=== PATIENT | female | born 1970 | race Caucasian/White ===

== ENCOUNTER 2016-06-30 16:27 | Emergency (ER) | payer BC ==
[2016-06-30] MEDS ORDERED: Famotidine 20 MG/2 ML SDV IVPUSH ONE (16:42)
[2016-06-30] MEDS ORDERED: Aspirin 81 MG Tab.Chew PO ONE (16:42)
[2016-06-30] MEDS ORDERED: Sodium Chloride 0.9% 1,000 ML IV ONE (16:42)
--- NOTE | 2016-06-30 16:45 | EDM.PDOC ---
ED HISTORY OF PRESENT ILLNESS - General Chief Complaint: Chest Pain Stated Complaint: CHEST PAIN Time Seen by Provider: 06/30/16 16:40 Source of Information: Reports: Patient History Limitations: Reports: No limitations - History of Present Illness INITIAL COMMENTS - FREE TEXT/NARRATIVE: History of present illness: [46 her old Female comes in complaining of significant amounts of chest pain and to left chest wall radiating down her left arm and up into her neck patient indicates that she gets tired significantly easy, bilateral ankle swelling, as well as feeling like her heart is in a bag it locks. It feels "boggy" and she feels like she has overwhelming amounts of fatigue] Review of systems: As per history of present illness and below otherwise all systems reviewed and negative. Past medical history: As per history of present illness and as reviewed below otherwise noncontributory. Surgical history: As per history of present illness and as reviewed below otherwise noncontributory. Social history: No reported history of drug or alcohol abuse. Family history: As per history of present illness and as reviewed below otherwise noncontributory. Physical exam: HEENT: Atraumatic, normocephalic, pupils reactive, negative for conjunctival pallor or scleral icterus, mucous membranes moist, throat clear, neck supple, nontender, trachea midline. Lungs: Clear to auscultation, breath sounds equal bilaterally, chest nontender. Heart: S1S2, regular, negative for clicks, rubs, or JVD. Abdomen: Soft, nondistended, nontender. Negative for masses or hepatosplenomegaly. Negative for costovertebral tenderness. Pelvis: Stable nontender. Genitourinary: Deferred. Rectal: Deferred. Extremities: Atraumatic, negative for cords or calf pain. Neurovascular unremarkable. Neuro: Awake, alert, oriented. Cranial nerves II through XII unremarkable. Cerebellum unremarkable. Motor and sensory unremarkable throughout. Exam nonfocal. Diagnostics: [CBC, CMP, troponin, INR, EKG, chest x-ray only UA, urine hCG] Therapeutics: [IV] Impression: [Atypical chest pain] Plan: [[id number] pain medication, may alternate ice and heat as well as followup PCP] Definitive disposition and diagnosis as appropriate pending reevaluation and review of above. - Related Data Allergies/ADRs: Allergies Allergy/AdvReac Type Severity Reaction Status Date / Time meperidine [From Demerol] Allergy Drowsiness Verified 06/30/16 16:56 CT contrast Allergy Hyperactivi Uncoded 06/30/16 16:56 ty ED ROS GENERAL - Review of Systems Review Of Systems: See Below (History of present illness) ED EXAM, GENERAL - Physical Exam Exam: See Below (See history of present illness) Course - Vital Signs Last Recorded V/S: Last Vital Signs Temp 36.9 C 06/30/16 17:00 Pulse 87 06/30/16 17:00 Resp 18 06/30/16 17:00 BP 143/86 H 06/30/16 17:00 Pulse Ox 97 06/30/16 17:00 - Orders/Labs/Meds Orders: Active Orders 24 hr Category Date Time Status Cardiac Monitoring [RC] . DIRECTED Care 06/30/16 16:42 Active EKG Documentation Completion [RC] STAT Care 06/30/16 16:42 Active Pulse Oximetry [RC] ASDIRECTED Care 06/30/16 16:42 Active Chest 1V Frontal [CR] Stat Exams 06/30/16 16:42 Taken HCG QUALITATIVE,URINE [URCHEM] Stat Lab 06/30/16 18:41 Ordered UA W/MICROSCOPIC [URIN] Stat Lab 06/30/16 18:41 Ordered Labs: Laboratory Tests 06/30/16 06/30/16 06/30/16 Range/Units 16:52 16:52 16:52 WBC 7.60 (4.0-11.0) K/uL RBC 4.83 (4.30-5.90) M/uL Hgb 14.6 (12.0-16.0) g/dL Hct 42.2 (36.0-46.0) % MCV 87.4 (80.0-98.0) fL MCH 30.2 (27.0-32.0) pg MCHC 34.6 (31.0-37.0) g/dL RDW Std Deviation 42.3 (28.0-62.0) fl RDW Coeff of Annie 13 (11.0-15.0) % Plt Count 209 (150-400) K/uL MPV 11.50 (7.40-12.00) fL Neut % (Auto) 53.4 (48.0-80.0) % Lymph % (Auto) 39.1 (16.0-40.0) % Deuel % (Auto) 6.3 (0.0-15.0) % Eos % (Auto) 0.8 (0.0-7.0) % Baso % (Auto) 0.4 (0.0-1.5) % Neut # (Auto) 4.1 (1.4-5.7) K/uL Lymph # (Auto) 3.0 H (0.6-2.4) K/uL Deuel # (Auto) 0.5 (0.0-0.8) K/uL Eos # (Auto) 0.1 (0.0-0.7) K/uL Baso # (Auto) 0.0 (0.0-0.1) K/uL Nucleated RBC % 0.0 /100WBC Nucleated RBCs # 0 K/uL INR 0.99 (0.86-1.11) Sodium 139 (136-146) mmol/L Potassium 3.7 (3.5-5.1) mmol/L Chloride 105 (98-110) mmol/L Carbon Dioxide 22 (21-31) mmol/L BUN 9 (6.0-23.0) mg/dL Creatinine 0.8 (0.6-1.5) mg/dL Est Cr Clr Drug Dosing 80.51 mL/min Estimated GFR (MDRD) > 60.0 ml/min Glucose 100 (60-110) mg/dL Calcium 9.5 (8.8-10.8) mg/dL Total Bilirubin 0.6 (0.1-1.5) mg/dL AST 31 (5-40) IU/L ALT 46 (8-54) IU/L Alkaline Phosphatase 54 (40-150) Troponin I (0.0-0.29) NG/ML B-Natriuretic Peptide (<100) PG/ML Total Protein 7.7 (6.0-8.0) g/dL Albumin 4.3 (3.5-5.0) g/dL Globulin 3.4 (2.0-3.5) g/dL Albumin/Globulin Ratio 1.3 (1.3-2.8) Amylase 48 (10-90) U/L Lipase 25 (7-80) U/L 06/30/16 06/30/16 Range/Units 16:52 16:52 WBC (4.0-11.0) K/uL RBC (4.30-5.90) M/uL Hgb (12.0-16.0) g/dL Hct (36.0-46.0) % MCV (80.0-98.0) fL MCH (27.0-32.0) pg MCHC (31.0-37.0) g/dL RDW Std Deviation (28.0-62.0) fl RDW Coeff of Annie (11.0-15.0) % Plt Count (150-400) K/uL MPV (7.40-12.00) fL Neut % (Auto) (48.0-80.0) % Lymph % (Auto) (16.0-40.0) % Deuel % (Auto) (0.0-15.0) % Eos % (Auto) (0.0-7.0) % Baso % (Auto) (0.0-1.5) % Neut # (Auto) (1.4-5.7) K/uL Lymph # (Auto) (0.6-2.4) K/uL Deuel # (Auto) (0.0-0.8) K/uL Eos # (Auto) (0.0-0.7) K/uL Baso # (Auto) (0.0-0.1) K/uL Nucleated RBC % /100WBC Nucleated RBCs # K/uL INR (0.86-1.11) Sodium (136-146) mmol/L Potassium (3.5-5.1) mmol/L Chloride (98-110) mmol/L Carbon Dioxide (21-31) mmol/L BUN (6.0-23.0) mg/dL Creatinine (0.6-1.5) mg/dL Est Cr Clr Drug Dosing mL/min Estimated GFR (MDRD) ml/min Glucose (60-110) mg/dL Calcium (8.8-10.8) mg/dL Total Bilirubin (0.1-1.5) mg/dL AST (5-40) IU/L ALT (8-54) IU/L Alkaline Phosphatase (40-150) Troponin I < 0.10 (0.0-0.29) NG/ML B-Natriuretic Peptide < 15 (<100) PG/ML Total Protein (6.0-8.0) g/dL Albumin (3.5-5.0) g/dL Globulin (2.0-3.5) g/dL Albumin/Globulin Ratio (1.3-2.8) Amylase (10-90) U/L Lipase (7-80) U/L Meds: Medications Discontinued Medications Generic Name Dose Route Start Last Admin Trade Name Estefania PRN Reason Stop Dose Admin Aspirin 324 mg 06/30/16 16:42 06/30/16 17:25 Aspirin PO 06/30/16 16:43 324 mg ONETIME ONE Administration Famotidine 20 mg 06/30/16 16:42 06/30/16 17:27 Pepcid IVPUSH 06/30/16 16:43 20 mg ONETIME ONE Administration Sodium Chloride 1,000 mls @ 999 mls/hr 06/30/16 16:42 06/30/16 17:26 Normal Saline IV 06/30/16 17:42 999 mls/hr .Bolus ONE Administration Departure - Departure Time of Disposition: 19:19 Disposition: Home, Self-Care 01 Condition: good Clinical Impression: Atypical chest pain Instructions: Nonspecific Chest Pain, [id number] Forms: ED Department Discharge Additional Instructions: The following information is given to patients seen in the emergency department who are being discharged to home. This information is to outline your options for follow-up care. We provide all patients seen in our emergency department with a follow-up referral. The need for follow-up, as well as the timing and circumstances, are variable depending upon the specifics of your emergency department visit. If you don't have a primary care physician on staff, we will provide you with a referral. We always advise you to contact your personal physician following an emergency department visit to inform them of the circumstance of the visit and for follow-up with them and/or the need for any referrals to a consulting specialist. The emergency department will also refer you to a specialist when appropriate. This referral assures that you have the opportunity for follow-up care with a specialist. All of these measure are taken in an effort to provide you with optimal care, which includes your follow-up. Under all circumstances we always encourage you to contact your private physician who remains a resource for coordinating your care. When calling for follow-up care, please make the office aware that this follow-up is from your recent emergency room visit. If for any reason you are refused follow-up, please contact the [facility] Emergency Department at and asked to speak to the emergency department charge nurse. May take ibuprofen 800 mg every 8 hours as needed for pain May alternate ice or heat to shoulder area as needed no longer than 20 minutes at a time Followup with primary care provider in one to 2 days return to ED as needed as discussed - My Orders Last 24 Hours: My Active Orders 06/30/16 16:42 Cardiac Monitoring [RC] . DIRECTED EKG Documentation Completion [RC] STAT Pulse Oximetry [RC] ASDIRECTED Chest 1V Frontal [CR] Stat 06/30/16 18:41 HCG QUALITATIVE,URINE [URCHEM] Stat UA W/MICROSCOPIC [URIN] Stat - Assessment/Plan Last 24 Hours: My Active Orders 06/30/16 16:42 Cardiac Monitoring [RC] . DIRECTED EKG Documentation Completion [RC] STAT Pulse Oximetry [RC] ASDIRECTED Chest 1V Frontal [CR] Stat 06/30/16 18:41 HCG QUALITATIVE,URINE [URCHEM] Stat UA W/MICROSCOPIC [URIN] Stat
[2016-06-30 17:44] LABS: CHLORIDE,CL 105 mmol/L (98-110); SODIUM,NA 139 mmol/L (136-146)
[2016-07-01 03:08] VITALS: BP 129/86
--- NOTE | 2016-07-01 15:38 | CR ---
EXAM DATE: 06/30/16 PATIENT'S AGE: 46 Patient: GALLO MORGAN Facility: [place], [place] Site . Site : [id number] Study: XRay Chest [id number]/30/2017 6:37:32 PM Ordering Physician: Doctor Cody Final Report: Indication: Chest pain Technique: Chest 1 view. Comparison: None Findings: Cardiovascular and mediastinum: Heart size and vasculature are normal in caliber and appearance. Mediastinum is within normal limits. Lungs and pleural space: Lungs are clear. No sign of infiltrate or mass. No sign of pleural effusion. No pneumothorax. Bones and soft tissues: No significant findings. Impression: No sign of acute disease. Dictated by Natasha Rod MD @ Jun 30 2016 7:04PM (Electronic Signature) Report Signed by Proxy and Original Signed Document filed in the Medical Record. JESSICA
== END 2016-06-30 19:36 | disposition home or self-care (01) ==
LOC: MW.ED 16:27
DX: R07.89 Other chest pain (principal); Z88.8 Allergy status to other drugs, medicaments and biological substances; Z91.041 Radiographic dye allergy status
CPT/HCPCS: 36415; 71010; 80053; 82150; 83690; 83880; 84484; 85025; 85610; 93005; 96361; 96374; 99285; A9270; J7040; 99284

== ENCOUNTER → 2016-07-20 | Outpatient (CLI) | payer BC ==
--- NOTE | 2016-07-20 14:13 | NM ---
EXAMINATION: Nuclear medicine myocardial perfusion study with exercise stress test. HISTORY: Chest pain. PROCEDURE: Patient exercised according to Ever protocol for 4 minutes and 26 seconds and achieved maximal hear t rate of 152 beats per minute. Adequate exercise. Following intravenous administration of 9.6 and 29.9 mCi of technetium 99m sestamibi, stress and r est SPECT images including gating imaging was performed. FINDINGS: Stress and rest myocardial SPECT images demonstrates uniform tracer uptake throughout the left ventr icular myocardium. Review of gated images demonstrates normal wall motion, contractility and wall thickening. The left ventricular ejection fraction is 70 %. The left ventricular chamber size is normal. IMPRESSION: 1. No evidence of myocardial ischemia. 2. Normal ventricular chamber size and function with ejection fraction of 70 %.
--- NOTE | 2016-07-21 13:17 | PCM.PRNOTE ---
- Free Text/Narrative Note: Procedure: Cardiolite exercise stress test Resting blood pressure 120/88, pulse 86 Patient exercised per Ever protocol 4 minutes and 26 seconds and achieved a maximum heart rate of 152 beats per minute which was 88% of age-predicted maximum heart rate. Mets: 7.0. Double product [id number]. Resting EKG revealed normal sinus rhythm. With exertion no acute ST-T changes were noted. Test stopped at target heart rate. Patient complained of shortness of breath and anterior chest discomfort latter part of exercise stress testing with resolution during recovery phase Impression. #1. Negative stress test for ischemic ST-T changes #2. Poor exercise tolerance #3. Cardiolite portion of test pending
--- NOTE | 2016-07-21 13:29 | PCM.PRNOTE ---
- Free Text/Narrative Note: Cardiolite exercise stress test Resting blood pressure 120/88, pulse 86 Patient exercised per Ever protocol 4 minutes and 26 seconds and achieved a maximum heart rate of 152 beats per minute which was 88% of age-predicted maximum heart rate. Mets: 7.0. Double product 30499 Resting EKG revealed normal sinus rhythm. With exertion, no significant ST-T changes were noted. Test stopped at target heart rate. Patient complained of shortness of breath and anterior chest discomfort during the latter part of stress testing with resolution during recovery phase Impression: #1. Negative stress test for ischemic ST-T changes #2. Poor exercise tolerance #3. Cardiolite portion of test pending
== END | disposition home or self-care (01) ==
LOC: MW.NM 06:29
PROVIDERS: ATTEND Family Medicine
DX: R07.89 Other chest pain (principal)
CPT/HCPCS: 78454; 93017; A9500

== ENCOUNTER 2021-08-20 17:17 | Emergency (ER) | payer BC ==
[2021-08-20] MEDS ORDERED: Sodium Chloride 0.9% 2.5 ML Syringe FLUSH PRN (18:32)
[2021-08-20] MEDS ORDERED: Sodium Chloride 0.9% 1,000 ML IV ONE (18:32)
[2021-08-20] MEDS ORDERED: Sodium Chloride 0.9% 10 ML Syringe FLUSH PRN (18:32)
[2021-08-20] MEDS ORDERED: Ondansetron 4 MG/2 ML SDV IVPUSH ONE (18:32)
[2021-08-20] MEDS ORDERED: Alum Hydro/Mag Hydro/Simeth XS 15 ML, Metoclopramide 5 MG, Lidocaine 2% 5 ML PO ONE ×3 (18:33)
[2021-08-20] MEDS ORDERED: Pantoprazole 80 MG in Sodium Chloride 0.9% 10 ML IVPUSH ONE (18:33)
[2021-08-20 19:04] LABS: BLOOD UREA NITROGEN,BUN 10 mg/dL (7.0-18.0); CARBON DIOXIDE,CO2 28.8 mmol/L (21.0-32.0); CHLORIDE,CL 105 mmol/L (98-107); GLUCOSE RANDOM 89 mg/dL (74-106); LIPASE 129 U/L (73-393); POTASSIUM,K 3.4 mmol/L (3.5-5.1); SODIUM,NA 141 mmol/L (136-145)
[2021-08-20] MEDS ORDERED: Iopamidol 755 MG/ML 500 ML Multipack Bottle IVPUSH ONE (19:49)
[2021-08-20 21:05] VITALS: BP 142/93; PULSE 60
== END 2021-08-20 21:11 | disposition home or self-care (01) ==
LOC: MW.ED 17:17
DX: R12 Heartburn (principal); R10.12 Left upper quadrant pain; I25.2 Old myocardial infarction; Z90.49 Acquired absence of other specified parts of digestive tract; Z79.899 Other long term (current) drug therapy; Z91.041 Radiographic dye allergy status; Z88.6 Allergy status to analgesic agent
CPT/HCPCS: 36415; 74177; 80053; 81003; 83690; 84703; 85025; 96374; 96375; 99284; A9270; C9113; J2405; J3490; J7030; Q9967

== ENCOUNTER 2021-09-20 09:46 | Day surgery (SDC) | payer BC ==
[~2021-09-20 09:46] MED LIST: Lactated Ringers 1,000 ML IV SCH; Lidocaine 2% 5 ML SDV ONE; Propofol 200 MG/20 ML SDV ONE; fentaNYL 100 MCG/2 ML SDV ONE
[2021-09-20] MEDS ORDERED: Propofol 200 MG/20 ML SDV ONE (12:10)
[2021-09-20] MEDS ORDERED: Lactated Ringers 1,000 ML IV SCH (12:30)
[2021-09-20 13:08] VITALS: BP 132/59; PULSE 65
== END 2021-09-20 13:10 | disposition home or self-care (01) ==
LOC: MW.SDS 09:46
PROVIDERS: ATTEND Surgery
DX: R15.9 Full incontinence of feces (principal); K31.89 Other diseases of stomach and duodenum; E66.9 Obesity, unspecified; F43.10 Post-traumatic stress disorder, unspecified; J44.9 Chronic obstructive pulmonary disease, unspecified; F41.9 Anxiety disorder, unspecified; F32.A Depression, unspecified; K29.70 Gastritis, unspecified, without bleeding; Z88.5 Allergy status to narcotic agent; Z91.041 Radiographic dye allergy status; Z90.49 Acquired absence of other specified parts of digestive tract; Z79.52 Long term (current) use of systemic steroids; Z79.51 Long term (current) use of inhaled steroids; Z79.899 Other long term (current) drug therapy; Z80.0 Family history of malignant neoplasm of digestive organs; Z68.36 Body mass index [BMI] 36.0-36.9, adult
CPT/HCPCS: J2704; J3010; J7120

== ENCOUNTER 2021-09-29 16:20 | Emergency (ER) | payer BC ==
[2021-09-29] MEDS ORDERED: Sodium Chloride 0.9% 1,000 ML IV ONE (16:28)
[2021-09-29] MEDS ORDERED: LORazepam 2 MG/ML SDV IVPUSH ONE (16:28)
[2021-09-29] MEDS ORDERED: Ondansetron 4 MG/2 ML SDV IVPUSH ONE (16:28)
[2021-09-29] MEDS ORDERED: Ketorolac 30 MG/ML SDV IVPUSH ONE (16:28)
[2021-09-29 17:47] LABS: CARBON DIOXIDE,CO2 24.6 mmol/L (21.0-32.0); POTASSIUM,K 3.2 mmol/L (3.5-5.1)
[2021-09-29 19:32] VITALS: BP 121/68; PULSE 72
== END 2021-09-29 18:13 | disposition home or self-care (01) ==
LOC: MW.ED 16:20
DX: G43.909 Migraine, unspecified, not intractable, without status migrainosus (principal); K21.9 Gastro-esophageal reflux disease without esophagitis; E66.9 Obesity, unspecified; Z91.041 Radiographic dye allergy status; Z88.8 Allergy status to other drugs, medicaments and biological substances; Z79.899 Other long term (current) drug therapy; Z68.36 Body mass index [BMI] 36.0-36.9, adult
CPT/HCPCS: 36415; 70450; 80053; 85025; 96361; 96374; 96375; 99284; J1885; J2060; J2405; J7030

== ENCOUNTER 2023-01-05 17:08 | Emergency (ER) | payer BC ==
[2023-01-05] MEDS ORDERED: Acetaminophen 325 MG Tab PO ONE (19:16)
[2023-01-05] MEDS ORDERED: Ibuprofen 400 MG Tab PO ONE (19:16)
[2023-01-05] MEDS ORDERED: Lidocaine 4% 1 each Patch TOP PRN (19:16)
[2023-01-05] MEDS ORDERED: oxyCODONE 5 MG Tab PO ONE (19:24)
[2023-01-05 20:37] VITALS: BP 116/84; PULSE 84
== END 2023-01-05 20:36 | disposition home or self-care (01) ==
LOC: MW.ED 17:08
DX: R07.89 Other chest pain (principal); J44.9 Chronic obstructive pulmonary disease, unspecified; K21.9 Gastro-esophageal reflux disease without esophagitis; E66.9 Obesity, unspecified; Z68.41 Body mass index [BMI] 40.0-44.9, adult; Z88.8 Allergy status to other drugs, medicaments and biological substances; Z91.041 Radiographic dye allergy status; Z88.5 Allergy status to narcotic agent; Z79.899 Other long term (current) drug therapy
CPT/HCPCS: 71101; 73030; 99283; A9270

== ENCOUNTER 2023-03-14 17:03 | Emergency (ER) | payer OTHER, BC ==
[2023-03-14 19:53] VITALS: BP 129/77; PULSE 58
== END 2023-03-14 19:24 | disposition home or self-care (01) ==
LOC: MW.ED 17:03
DX: S50.02XA Contusion of left elbow, initial encounter (principal); S60.212A Contusion of left wrist, initial encounter; S80.01XA Contusion of right knee, initial encounter; S80.02XA Contusion of left knee, initial encounter; J44.9 Chronic obstructive pulmonary disease, unspecified; E66.9 Obesity, unspecified; Z90.49 Acquired absence of other specified parts of digestive tract; Z90.710 Acquired absence of both cervix and uterus; Z95.1 Presence of aortocoronary bypass graft; Z91.040 Latex allergy status; Z88.8 Allergy status to other drugs, medicaments and biological substances; Z79.899 Other long term (current) drug therapy; W00.9XXA Unspecified fall due to ice and snow, initial encounter
CPT/HCPCS: 70450; 70450-26; 73080-26-LT; 73080-LT; 73110-26-LT; 73110-LT; 735622650; 73562-50; 99282; 99284

== ENCOUNTER 2023-05-19 16:01 | Emergency (ER) | payer BC ==
[2023-05-19 16:53] LABS: BASOPHILS ABSOLUTE AUTO 0.02 K/uL (0.00-0.20); BASOPHILS PERCENT AUTO 0.3 % (0.0-1.0); EOSINOPHILS ABSOLUTE AUTO 0.07 K/uL (0.00-0.45); EOSINOPHILS PERCENT AUTO 1.1 % (0.0-6.0); HEMATOCRIT 37.1 % (37.0-47.0); HEMOGLOBIN 12.5 g/dL (12.0-16.0); IMMATURE GRAN ABSOLUTE AUTO 0.01 K/uL (0.00-0.05); IMMATURE GRAN PERCENT AUTO 0.2 % (0.0-0.4); LYMPHOCYTES ABSOLUTE AUTO 2.19 K/uL (1.00-4.80); LYMPHOCYTES PERCENT AUTO 32.9 % (24.0-44.0); MEAN CORPUSCULAR HEMOGLOBIN 30.8 pg (28.0-32.0); MEAN CORPUSCULAR HGB CONC 33.7 g/dL (32.0-36.0); MEAN CORPUSCULAR VOLUME 91.4 fL (83.0-99.0); MEAN PLATELET VOLUME 11.1 fL (9.4-12.3); MONOCYTES ABSOLUTE AUTO 0.69 K/uL (0.00-0.80); MONOCYTES PERCENT AUTO 10.4 % (0.0-8.0); NEUTROPHILS ABSOLUTE AUTO 3.67 K/uL (1.80-7.70); NEUTROPHILS PERCENT AUTO 55.1 % (41.0-71.0); PLATELET COUNT,PLT 206 K/uL (150-400); RED BLOOD CELL COUNT 4.06 M/uL (4.10-5.30); WHITE BLOOD CELL COUNT,WBC 6.65 K/uL (3.9-11.3)
[2023-05-19] MEDS: Ondansetron 4 MG/2 ML SDV IVPUSH ONE (16:54)
[2023-05-19] MEDS: Sodium Chloride 0.9% 1,000 ML IV ONE (16:54)
[2023-05-19] MEDS: Sodium Chloride 0.9% 10 ML Syringe FLUSH PRN (16:54)
[2023-05-19] MEDS: Sodium Chloride 0.9% 2.5 ML Syringe FLUSH PRN (16:54)
[2023-05-19] MEDS: Ketorolac 30 MG/ML SDV IVPUSH ONE (16:54)
[2023-05-19 16:57] LABS: APPEARANCE,URINE CLEAR; BILIRUBIN,URINE NEGATIVE (NEGATIVE); COLOR,URINE YELLOW; GLUCOSE,URINE NEGATIVE (NEGATIVE); KETONES,URINE TRACE mg/dL (NEGATIVE); OCCULT BLOOD,URINE LARGE (NEGATIVE); PROTEIN,URINE NEGATIVE (NEGATIVE); UROBILINOGEN,URINE 0.2 EU/dL (<2.0)
[2023-05-19 17:04] LABS: LEUKOCYTE ESTERASE,URINE MODERATE (NEGATIVE); NITRITE,URINE POSITIVE (NEGATIVE); PH,URINE 5.5 (5.0-8.0)
[2023-05-19 17:13] LABS: BACTERIA,URINE 3+ (NEGATIVE); MUCUS,URINE MODERATE (NONE-MOD); SQUAMOUS EPITHELIAL CELLS,UR FEW
[2023-05-19 17:22] LABS: A/G RATIO 0.9 (0.9-1.6); ALBUMIN 3.2 g/dL (3.4-5.0); BILIRUBIN TOTAL 0.2 mg/dL (0.2-1.0); CALCIUM 8.6 mg/dL (8.5-10.1); CARBON DIOXIDE,CO2 25.5 mmol/L (21.0-32.0); CREATININE 0.9 mg/dL (0.6-1.0); EST CRCL DRUG DOSING (CG) 55.86 mL/min; POTASSIUM,K 3.9 mmol/L (3.5-5.1); PROTEIN TOTAL,TP 6.6 g/dL (6.4-8.2)
[2023-05-19] MEDS ORDERED: Naloxone 0.4 MG/ML SDV IVPUSH PRN (17:33)
[2023-05-19] MEDS: Morphine 2 MG/ML SYRINGE IVPUSH ONE (17:55)
[2023-05-19 18:45] VITALS: BP 113/63; PULSE 56
== END 2023-05-19 18:44 | disposition home or self-care (01) ==
LOC: MW.ED 16:01
DX: K63.89 Other specified diseases of intestine (principal); N39.0 Urinary tract infection, site not specified; J44.9 Chronic obstructive pulmonary disease, unspecified; K21.9 Gastro-esophageal reflux disease without esophagitis; E66.9 Obesity, unspecified; Z79.899 Other long term (current) drug therapy; Z91.041 Radiographic dye allergy status; Z88.8 Allergy status to other drugs, medicaments and biological substances; Z68.41 Body mass index [BMI] 40.0-44.9, adult
CPT/HCPCS: 36415; 74176; 80053; 81001; 83690; 85025; 96361; 96374; 96375; 99284; J1885; J2270; J2405; J3490; J7030